=== PATIENT | female | born 1965 | race Caucasian/White ===

== ENCOUNTER 2019-04-28 09:02 | Outpatient (CLI) | payer OTHER ==
[~2019-04-28] VITALS: Ht 152.4 cm; Wt 75.3 kg
[~2019-04-28 09:02] MED LIST: COLACE100 MG PO; INTESTINEX1 CAP PO; PERCOCET 5/3251 TAB PO; PROTONIX20 MG PO; PROTONIX40 MG PO
== END 2019-04-28 11:25 | disposition home or self-care (01) ==
LOC: OFIC 805 09:02
DX: J32.8 Other chronic sinusitis (principal); R04.0 Epistaxis; J31.2 Chronic pharyngitis

== ENCOUNTER 2019-05-17 07:36 | Outpatient (CLI) | payer OTHER | END 2019-05-17 07:43 | disposition home or self-care (01) | LOC: TOM 07:36 | DX: J32.8 Other chronic sinusitis (principal); R04.0 Epistaxis ==

== ENCOUNTER 2019-05-19 10:39 | Outpatient (CLI) | payer OTHER ==
[~2019-05-19] VITALS: Ht 152.4 cm; Wt 75.3 kg
== END 2019-05-19 12:37 | disposition home or self-care (01) ==
LOC: OFIC 805 10:39
DX: J31.2 Chronic pharyngitis (principal); R04.0 Epistaxis; J34.2 Deviated nasal septum